=== PATIENT | female | born 1995 | race Two or more races ===

== ENCOUNTER 2024-02-07 14:01 | Observation (INO) | payer MEDICAID, OTHER ==
[~2024-02-07] VITALS: Ht 154.9 cm; Wt 68.0 kg
[2024-02-07] MEDS: LACTATED RINGER'S 1,000 ML IV ONE (15:31)
== END 2024-02-07 16:37 | disposition home or self-care (01) ==
LOC: LDRP 14:01
PROVIDERS: ADMIT Obstetrics & Gynecology; ATTEND Obstetrics & Gynecology
DX: O26.893 Other specified pregnancy related conditions, third trimester (principal); R00.0 Tachycardia, unspecified; O99.891 Other specified diseases and conditions complicating pregnancy; M54.9 Dorsalgia, unspecified; Z3A.31 31 weeks gestation of pregnancy
CPT/HCPCS: 59025; 81002; 94760; 96360; 96361; G0378

== ENCOUNTER 2024-02-13 14:25 | Observation (INO) | payer MEDICAID ==
[2024-02-13 15:41] LABS: Amphetamine Screen, Urine Neg (NEGATIVE)
[2024-02-13 15:42] LABS: Barbiturate Scree,Urine Neg (NEGATIVE); Benzodiazephine Screen, Urine Neg (NEGATIVE); Cocaine Screen, Urine Neg (NEGATIVE)
[2024-02-13 15:43] LABS: Cannabinoid Screen, Urine Neg (NEGATIVE); Opiate Scree,Urine Neg (NEGATIVE); Phencyclidine Screen, Urine Neg (NEGATIVE)
== END 2024-02-13 16:28 | disposition home or self-care (01) ==
LOC: LDRP 14:25
PROVIDERS: ADMIT Obstetrics & Gynecology; ATTEND Obstetrics & Gynecology
DX: O26.893 Other specified pregnancy related conditions, third trimester (principal); M54.2 Cervicalgia; R07.89 Other chest pain; R42 Dizziness and giddiness; R00.2 Palpitations; O99.891 Other specified diseases and conditions complicating pregnancy; M54.9 Dorsalgia, unspecified; Z3A.31 31 weeks gestation of pregnancy; Z79.899 Other long term (current) drug therapy
CPT/HCPCS: 59025; 76805; 80307; 81002; 93005; 94760; G0378

== ENCOUNTER 2024-02-13 16:28 | Emergency (ER) | payer MEDICAID ==
[~2024-02-13] VITALS: Ht 154.9 cm; Wt 68.0 kg
[2024-02-13 17:00] VITALS: PULSE 108; RESP 16; O2SAT 98
[2024-02-13 17:01] LABS: Basophils # (auto) 0.1 10 ^3/uL (0-0.2); Eosinophils # (auto) 0.3 10 ^3/uL (0-0.8); Lymphocytes # (auto) 1.1 10 ^3/uL (0.4-5.4); Mean Corpuscular Hemoglobin 25.7 pg (28.0-32.0); Mean Corpuscular Hgb Conc. 32.7 g/dL (32.0-36.0); Monocytes # (auto) 0.8 10 ^3/uL (0-1.3)
[2024-02-13 17:03] LABS: Basophils % (auto) 0.6 % (0.0-2.0); Eosinophils % (auto) 2.9 % (0.0-7.0); Hematocrit 31.5 % (36.0-46.0); Hemoglobin 10.3 g/dL (12.2-16.2); Lymphocytes % (auto) 11.6 % (10.0-50.0); Mean Corpuscular Volume 78.5 fL (80.0-100.0); Monocytes % (auto) 8.5 % (0.0-12.0); Neutrophils # (auto) 7.3 10 ^3/uL (1.6-8.6); Neutrophils % (auto) 76.4 % (37.0-80.0); Nucleated Red Blood Cells % 0.1 %; Platelet Count (auto) 206 10^3/uL (140-450); Red Blood Cells 4.02 10^6/uL (4.0-5.20); Red Cell Distribution Width 16.7 % (11.8-14.3); White Blood Cell 9.5 10^3/uL (4.4-10.8)
[2024-02-13 17:18] LABS: Alanine Aminotransferase 19 U/L (7-40); Albumin 3.8 g/dL (3.2-4.8); Alkaline Phosphatase 127 U/L (46-116); Anion Gap 8 (5-15); Aspartate Aminotransferase 26 U/L (13-40); Calcium 8.3 mg/dL (8.7-10.4); Carbon Dioxide 20 mmol/L (20-30); Chloride 109 mmol/L (98-107); Glucose 91 mg/dL (74-106); Potassium 3.7 mmol/L (3.5-5.1); Sodium 137 mmol/L (136-145)
[2024-02-13 17:19] LABS: BUN/Creatinine Ratio 12.8 (10.0-20.0); Bilirubin, Total 0.3 mg/dL (0.2-1.0); Blood Urea Nitrogen < 5 mg/dL (9-23); Total Protein 5.8 g/dL (5.7-8.2)
[2024-02-13] MEDS: SODIUM CHLORIDE 0.9% 1,000 ML IV ONE (17:39)
[2024-02-13] MEDS: diphenhdrAMINE HCL 50 MG/1 ML VL IV ONE (18:44)
[2024-02-13] MEDS: MORPHINE SULFATE 4 MG/ML SYR/VIAL IV ONE (18:46)
[2024-02-13 19:34] VITALS: PULSE 134; O2SAT 98
[2024-02-13 23:41] LABS: Urine Bacteria None Seen /hpf (None Seen)
[2024-02-13 23:50] LABS: Urine Blood Negative /uL (Negative); Urine Clarity Clear (Clear); Urine Color Light-Yellow (Yellow); Urine Protein, UAD Negative (Negative); Urine Specific Gravity 1.012 (1.001-1.035); Urine Urobilinogen Normal (Negative); Urine WBC 1 /hpf (0 - 5)
[2024-02-14 01:33] VITALS: BP 115/68; PULSE 133; RESP 15; TEMP 98.7; O2SAT 99
== END 2024-02-14 01:58 | disposition short-term general hospital (02) ==
LOC: ER 16:28
DX: O26.893 Other specified pregnancy related conditions, third trimester (principal); R00.0 Tachycardia, unspecified; R00.2 Palpitations; Z3A.32 32 weeks gestation of pregnancy
CPT/HCPCS: 36415; 80053; 81001; 84484; 85025; 93005; 96361; 96374; 96375; 99285; J1200; J2270; J7030